=== PATIENT | male | born 1955 | race Caucasian/White ===

== ENCOUNTER 2020-05-11 08:05 | Outpatient (REF) | payer MEDICARE, SELFPAY ==
[2020-05-11 11:08] LABS: MANUAL DIFF FLAG NO
[2020-05-11 11:12] LABS: Basophils Absolute Auto 0.1 X10*3/uL (0.0-0.2); Eosinophils Absolute Auto 0.1 X10*3/uL (0.0-0.4); Eosinophils Percent Auto 1.5 % (0-4); Hematocrit 42.9 % (42-52); Hemoglobin 14.6 g/dl (14.0-18.0); Imm Gran Abs Auto 0.05 X10*3/uL (0.00-0.03); Imm Gran Pct Auto 0.7 % (0.0-0.4); Lymphocytes Absolute Auto 2.4 X10*3/uL (1.2-4.9); Lymphocytes Percent Auto 34.1 % (20-40); Mean Corpuscular Hemoglobin 28.7 pg (27.0-33.0); Mean Corpuscular Volume 84.4 fL (80-98); Monocytes Absolute Auto 0.6 X10*3/uL (0.1-1.2); Monocytes Percent Auto 8.8 % (2-11); Neutrophils Absolute Auto 3.9 X10*3/uL (2.0-8.3); Neutrophils Percent Auto 53.9 % (45-73); Platelet Count 306 X10*3/uL (160-400); Red Blood Count 5.08 X10*6/uL (4.60-5.80); Red Cell Distribution Width 13.1 % (11.0-16.0); White Blood Count 7.2 X10*3/uL (4.8-10.8)
[2020-05-11 12:00] LABS: Alanine Aminotransferase 33 U/L (0-40); Albumin Level 4.1 g/dL (3.5-5.0); Alkaline Phosphatase 67 U/L (39-117); Anion Gap 13 (12-20); Aspartate Amino Transferase 17 U/L (5-37); Bilirubin Total 0.7 mg/dL (0.0-1.0); Blood Urea Nitrogen 15 mg/dL (9-16); Calcium 8.5 mg/dL (8.4-10.2); Carbon Dioxide 27 mmol/L (22-29); Chloride 100 mmol/L (96-108); Cholesterol 170 mg/dL; Estimated Glomerular Filt Rate 56; Glucose Fasting 280 mg/dL (60-99); HDL Cholesterol 45 mg/dL; LDL Cholesterol Calculated 109 mg/dl; Potassium 4.6 mmol/l (3.3-5.1); Sodium 135 mmol/L (135-145); Total Protein 6.8 g/dL (6.5-8.0); Triglycerides 83 mg/dL
[2020-05-11 12:04] LABS: Prostate Specific Antigen 0.18 ng/mL (<0.05-4.0)
[2020-05-12 08:22] LABS: ~HepC Num1 0.08 S/CO (0.00-0.79); ~Hepatitis C Antibody Nonreactive (Nonreactive)
== END 2020-05-11 08:06 | disposition home or self-care (01) ==
LOC: HO.MANLDS 08:05
PROVIDERS: PCP Internal Medicine; Visit Provider Internal Medicine
DX: Z00.00 Encounter for general adult medical examination without abnormal findings (principal); Z12.5 Encounter for screening for malignant neoplasm of prostate
CPT/HCPCS: 36415; 80053; 80061; 84153; 85025; 86803

== ENCOUNTER 2020-08-16 08:15 | Outpatient (REF) | payer MEDICARE, SELFPAY ==
[2020-08-16 11:38] LABS: Estimated Average Glucose 272 mg/dL; Hemoglobin A1c % 11.1 %
[2020-08-16 12:07] LABS: Creatinine Urine 161.41 mg/dL; Microalbum/Creatinine Ratio Ur 25.4 ug/mg cr
== END 2020-08-16 08:16 | disposition home or self-care (01) ==
LOC: HO.MANLDS 08:15
PROVIDERS: Visit Provider Internal Medicine
DX: E11.9 Type 2 diabetes mellitus without complications (principal)
CPT/HCPCS: 36415; 82043; 83036

== ENCOUNTER 2020-11-23 07:49 | Outpatient (REF) | payer MEDICARE, SELFPAY ==
[2020-11-23 11:41] LABS: Estimated Average Glucose 203 mg/dL; Hemoglobin A1c % 8.7 %
== END 2020-11-23 07:50 | disposition home or self-care (01) ==
LOC: HO.MANLDS 07:49
PROVIDERS: PCP Internal Medicine; Visit Provider Internal Medicine
DX: E11.9 Type 2 diabetes mellitus without complications (principal)
CPT/HCPCS: 36415; 83036

== ENCOUNTER 2021-04-04 07:54 | Outpatient (REF) | payer MEDICARE, SELFPAY ==
[2021-04-04 11:11] LABS: Estimated Average Glucose 151 mg/dL; Hemoglobin A1c % 6.9 %
== END 2021-04-04 07:55 | disposition home or self-care (01) ==
LOC: HO.MANLDS 07:54
PROVIDERS: PCP Internal Medicine; Visit Provider Internal Medicine
DX: E11.9 Type 2 diabetes mellitus without complications (principal)
CPT/HCPCS: 36415; 83036

== ENCOUNTER 2021-08-23 08:19 | Outpatient (REF) | payer MEDICARE, SELFPAY ==
[2021-08-23 13:41] LABS: Alanine Aminotransferase 31 U/L (0-40); Albumin Level 4.4 g/dL (3.5-5.0); Alkaline Phosphatase 65 U/L (39-117); Anion Gap 14 (12-20); Aspartate Amino Transferase 22 U/L (5-37); Bilirubin Total 0.8 mg/dL (0.0-1.0); Blood Urea Nitrogen 15 mg/dL (9-16); Calcium 9.4 mg/dL (8.4-10.2); Carbon Dioxide 26 mmol/L (22-29); Chloride 103 mmol/L (96-108); Cholesterol 179 mg/dL; Estimated Glomerular Filt Rate 60; Glucose Fasting 130 mg/dL (60-99); HDL Cholesterol 48 mg/dL; LDL Cholesterol Calculated 114 mg/dl; Potassium 4.5 mmol/L (3.3-5.1); Sodium 138 mmol/L (135-145); Total Protein 7.3 g/dL (6.5-8.0); Triglycerides 88 mg/dL
[2021-08-23 14:03] LABS: Estimated Average Glucose 154 mg/dL
== END 2021-08-23 08:20 | disposition home or self-care (01) ==
LOC: HO.MANLDS 08:19
PROVIDERS: PCP Internal Medicine; Visit Provider Internal Medicine
DX: E11.9 Type 2 diabetes mellitus without complications (principal)
CPT/HCPCS: 36415; 80053; 80061; 83036

== ENCOUNTER 2022-02-07 07:32 | Outpatient (REF) | payer MEDICARE, SELFPAY ==
[2022-02-07 12:15] LABS: Estimated Average Glucose 183 mg/dL
== END 2022-02-07 07:33 | disposition home or self-care (01) ==
LOC: HO.MANLDS 07:32
PROVIDERS: Visit Provider Internal Medicine
DX: E11.9 Type 2 diabetes mellitus without complications (principal)
CPT/HCPCS: 36415; 83036

== ENCOUNTER 2022-04-17 08:45 | Outpatient (REF) | payer MEDICARE, SELFPAY ==
[2022-04-17 12:04] LABS: Estimated Average Glucose 160 mg/dL; Hemoglobin A1c % 7.2 %
[2022-04-17 14:03] LABS: Cholesterol 192 mg/dL; HDL Cholesterol 46 mg/dL; LDL Cholesterol Calculated 116 mg/dl; Triglycerides 153 mg/dL
== END 2022-04-17 08:46 | disposition home or self-care (01) ==
LOC: HO.MANLDS 08:45
PROVIDERS: Visit Provider Internal Medicine
DX: E11.9 Type 2 diabetes mellitus without complications (principal)
CPT/HCPCS: 36415; 80061; 83036

== ENCOUNTER 2022-08-28 07:44 | Outpatient (REF) | payer MEDICARE, SELFPAY ==
[2022-08-28 11:52] LABS: Estimated Average Glucose 189 mg/dL; Hemoglobin A1c % 8.2 %
== END 2022-08-28 07:45 | disposition home or self-care (01) ==
LOC: HO.MANLDS 07:44
PROVIDERS: Visit Provider Internal Medicine
DX: E11.9 Type 2 diabetes mellitus without complications (principal)
CPT/HCPCS: 36415; 83036

== ENCOUNTER 2023-02-20 08:34 | Outpatient (REF) | payer MEDICARE, SELFPAY ==
[2023-02-20 13:55] LABS: Estimated Average Glucose 194 mg/dL; Hemoglobin A1c % 8.4 % (<6.0)
== END 2023-02-20 08:35 | disposition home or self-care (01) ==
LOC: HO.MANLDS 08:34
PROVIDERS: Visit Provider Internal Medicine
DX: E11.9 Type 2 diabetes mellitus without complications (principal)
CPT/HCPCS: 36415; 83036

== ENCOUNTER 2023-04-20 07:29 | Outpatient (REF) | payer MEDICARE, SELFPAY ==
[2023-04-20 14:39] LABS: Estimated Average Glucose 200 mg/dL; Hemoglobin A1c % 8.6 % (<6.0)
== END 2023-04-20 07:30 | disposition home or self-care (01) ==
LOC: HO.MANLDS 07:29
PROVIDERS: Visit Provider Internal Medicine
DX: E11.9 Type 2 diabetes mellitus without complications (principal)
CPT/HCPCS: 36415; 83036

== ENCOUNTER 2023-12-24 09:36 | Outpatient (REF) | payer MEDICARE, SELFPAY ==
[2023-12-24 13:41] LABS: Estimated Average Glucose 146 mg/dL; Hemoglobin A1c % 6.7 % (<6.0)
== END 2023-12-24 09:37 | disposition home or self-care (01) ==
LOC: HO.MANLDS 09:36
PROVIDERS: Visit Provider Internal Medicine
DX: E11.9 Type 2 diabetes mellitus without complications (principal)
CPT/HCPCS: 36415; 83036

== ENCOUNTER 2024-02-29 08:07 | Outpatient (REF) | payer MEDICARE, SELFPAY ==
[2024-02-29 13:56] LABS: Estimated Average Glucose 140 mg/dL; Hemoglobin A1C 179.0024 umol/L; Hemoglobin A1c % 6.5 % (<6.0); Total Hemoglobin (HGBA1C) 3726.3719 umol/L
== END 2024-02-29 08:08 | disposition home or self-care (01) ==
LOC: HO.MANLDS 08:07
PROVIDERS: Visit Provider Internal Medicine
DX: E11.9 Type 2 diabetes mellitus without complications (principal)
CPT/HCPCS: 36415; 83036

== ENCOUNTER 2024-02-29 09:27 | Outpatient (REF) | payer MEDICARE, SELFPAY ==
[2024-02-29 14:16] LABS: Creatinine Urine 55.28 mg/dL
== END 2024-02-29 09:28 | disposition home or self-care (01) ==
LOC: HO.MANLDS 09:27
PROVIDERS: Visit Provider Internal Medicine
DX: E11.9 Type 2 diabetes mellitus without complications (principal)
CPT/HCPCS: 82043; 82570

== ENCOUNTER 2024-08-15 08:34 | Outpatient (REF) | payer MEDICARE, SELFPAY ==
[2024-08-15 13:07] LABS: MANUAL DIFF FLAG NO
[2024-08-15 13:38] LABS: Basophils Absolute Auto 0.1 X10*3/uL (0.0-0.2); Basophils Percent Auto 0.9 % (0-2); Eosinophils Absolute Auto 0.1 X10*3/uL (0.0-0.4); Eosinophils Percent Auto 1.5 % (0-4); Hematocrit 41.6 % (42.0-52.0); Hemoglobin 14.1 g/dl (14.0-18.0); Imm Gran Abs Auto 0.03 X10*3/uL (0.00-0.03); Imm Gran Pct Auto 0.4 % (0.0-0.4); Lymphocytes Absolute Auto 1.7 X10*3/uL (1.2-4.9); Lymphocytes Percent Auto 25.1 % (20-40); Mean Corpuscular HGB Conc 33.9 g/dl (31.0-36.0); Mean Corpuscular Hemoglobin 28.5 pg (27.0-33.0); Mean Platelet Volume 9.7 fL (9.4-12.4); Monocytes Absolute Auto 0.8 X10*3/uL (0.1-1.2); Neutrophils Absolute Auto 4.2 x10*3/uL (2.0-8.3); Neutrophils Percent Auto 61.1 % (45-73); Platelet Count 301 X10*3/uL (160-400); Red Blood Count 4.95 X10*6/uL (4.60-5.80); White Blood Count 6.8 X10*3/uL (4.8-10.8)
[2024-08-15 13:46] LABS: Estimated Average Glucose 171 mg/dL; Hemoglobin A1c % 7.6 % (<6.0); Total Hemoglobin (HGBA1C) 3754.7316 umol/L
== END 2024-08-15 08:35 | disposition home or self-care (01) ==
LOC: HO.MANLDS 08:34
PROVIDERS: Visit Provider Internal Medicine
DX: E11.9 Type 2 diabetes mellitus without complications (principal); Z00.00 Encounter for general adult medical examination without abnormal findings
CPT/HCPCS: 36415; 83036; 85025

== ENCOUNTER 2025-03-17 10:33 | Outpatient (REF) | payer MEDICARE, SELFPAY ==
[2025-03-17 13:06] LABS: MANUAL DIFF FLAG NO
[2025-03-17 13:11] LABS: Hematocrit 41.5 % (42.0-52.0); Hemoglobin 13.8 g/dl (14.0-18.0); Imm Gran Abs Auto 0.03 X10*3/uL (0.00-0.03); Imm Gran Pct Auto 0.5 % (0.0-0.4); Lymphocytes Absolute Auto 1.4 X10*3/uL (1.2-4.9); Mean Corpuscular HGB Conc 33.3 g/dl (31.0-36.0); Mean Corpuscular Hemoglobin 28.0 pg (27.0-33.0); Mean Corpuscular Volume 84.2 fL (80.0-98.0); NRBC Abs Auto 0.000 X10*3/uL (0.0-0.012); NRBC Pct Auto 0.0 /100WBC (0.0-0.2); Platelet Count 317 X10*3/uL (160-400); Red Blood Count 4.93 X10*6/uL (4.60-5.80); White Blood Count 6.0 X10*3/uL (4.8-10.8)
--- OUTSIDE RECORDS SUMMARY | 2025-03-17 13:15 | XMS_ITS | Continuity of Care Document ---
Author Organization [facility], [facility] Address [address] [facility] et [address] [place] [address] Assessment Encounter Date Assessment Date Assessment LastModified by Organization Details LastModified Time 03/17/2025 03/17/2025 Patient presente d to office today for their Medicare Annual Wellness Visit. Education was provided on healthy nutrition, including a diet rich in fruits and vegetables, minimizing simple carbohydrates, salt, and saturated fats. Encouraged regular cardiovascular exercise such as walking at least 30 minutes daily, 5 times per week. Emphasized preventive health measures and educated pt on fall prevention and community-based lifestyle interventions to help reduce health risks and promote healthy living. [email or web address] Not available 03/10/2025 12:21:27 Plan of Treatment Reminders Order Date Submit Date Provider Last Modified By Organization Details Last Modified Time Details Appointments MEDICARE ANNUAL WELLNESS 2024 10:00A M DR CARDOSO Not available Not available Not available FOLLOW UP 15 2025 10:00A M DR CARDOSO Not available Not available Not available Lab hemoglobi n A1c, QN, blood 2024 025 [facility], [address] [place] [address], [id number], 03/17/2025 10:22:05 CBC w/ auto diff 2024 025 [facility], [address] [place] [address], [place], [id number], 03/17/2025 10:22:05 CMP, serum or plasma 2024 025 [facility], [address] [place] [address], [id number], 03/17/2025 10:22:05 Referral None recorded. Procedures None recorded. Surgeries None recorded. Imaging None recorded. Medication Orders None recorded. Patient TargetsNo targets recorded. Patient Instructions Encounter Date Encounter Id Patient Instructions Last Modified By Organization Details Last Modified Time 03/17/2025 [id number] advance care planning: care instructions Not available 03/17/2025 10:20:47 Discussed and explained advance directives such as standard forms to the patient. Face to face discussion lasted for a duration of _30__ minutes. Not available 03/17/2025 10:19:09 Reason for Referral None Reported. Results Created Date Observation Date Name Description Value Unit Range Abnormal Flag Note LastModifiedBy Organization Detail LastModifiedTime Result Notes None recorded. Problems Name Problem SNOMED Code Status Onset Date Resolution Date Notes Provider Name and Address Organization Details Recorded Time Type 2 diabetes mellitus 90115766 Active 2019 Not Available [facility] 3 16:00:58 Dysplastic nevus of skin 201003980 Active 2021 Not Available [facility] 3 16:00:58 Actinic keratosis 597425319 Active 2022 Aung Cardoso DO [address] [place] [address], [phone], [facility] 3 12:28:36 Xerosis due to atopic dermatitis 308375341 Active 2022 Aung Cardoso DO [address] [place] [address], [address], [facility] 3 12:30:02 Retinal hemorrhage 97798582 Active 2023 Aung Cardoso DO [address] [place] [address], [phone], [facility] 4 16:21:31 Colorectal cancer detected by DNA-based stool screening 243627934 Active 2023 TAD ESCAMILLA [address] [place] [address], [address], [facility] 4 10:48:45 Problem Notes None recorded. Procedures Surgical History Date Name Laterality Status Provider Name and Address Organization Details Recorded Time 03/12/20 25 Colonoscopy completed Aung Cardoso, DO [address] [facility], [place], [address], [facility] 03/12/2025 12:19:05 08/22/19 25 Colonoscopy completed Graham Haleyjessica [facility] 08/22/2024 07:29:10 Imaging Results None recorded. Procedure Notes None recorded. Medical Equipment None Reported. Allergies No known drug allergies Medications Name Sig Start Date Stop Date Status Note LastModified by Organization Details LastModified Time metformin 500 mg tablet TAKE 1 TABLET BY MOUTH EVERY DAY 03/05 completed Not Available Not Available Not Available fluorouraci l 5 % topical cream APPLY TWICE DAILY FOR TWO WEEKS TO FRONTAL HAIR LINE TO SCALP. WASH HANDS AFTER APPLYING. active Not Available Not Available No t Available glimepiride 2 mg tablet TAKE 1 TABLET BY MOUTH EVERY DAY AT DINNER FOR 30 DAYS active Not Available Not Available No t Available metformin 1,000 mg tablet TAKE 1 TABLET BY MOUTH EVERY DAY 03/05 completed Not Available Not Available Not Available glimepiride 4 mg tablet TAKE 1 TABLET BY MOUTH EVERY DAY IN THE MORNING active Not Available Not Available No t Available GaviLyte-G 236 gram-22.74 gram-6.74 gram-5.86 gram oral solution 4000ML ORALLY PATIENT HAS INSTRUCTI ONS 2 DAYS 03/17 completed Not Available Not Available Not Available Prevnar 13 (PF) 0.5 mL intramuscul ar syringe ADM 0.5ML IM UTD 05/10 completed Not Available Not Available Not Available Jardiance 10 mg tablet TAKE 1 TABLET BY MOUTH EVERY DAY FOR 30 DAYS 10/09 completed Not Available Not Available Not Available Jardiance 25 mg tablet TAKE 1 TABLET BY MOUTH EVERY DAY 05/29 completed Not Available Not Available Not Available Shingrix (PF) 50 mcg/0.5 mL intramuscul ar suspension, kit ADM 0.5ML IM UTD 05/10 completed Not Available Not Available Not Available Fluzone High-Dose Quad (PF) 240 mcg/0.7 mL IM syringe ADMINISTE R 0.7ML IN THE MUSCLE DIRECTED 05/10 completed Not Available Not Available Not Available Vitals Date Recorded Body height Body mass index (BMI) Body weight Heart rate Oxygen saturation Oxygen saturation in Arterial blood by Pulse oximetry Systolic And Diastolic Provider Name and Address Organization Details Last Updated DateTime 5 165.1 cm 31.8 kg/m2 72202.1 4 g 79 /min 98 % 98 % 124/72 mm[Hg] Aung Cardoso DO [address] [place], [address] 5 10:04:59 Social History Question Answer Notes LastModified by Organizat ion Details LastModified Time Tobacco Smoking Status Former Smoker quit 2012 Connie tarango [facility] 05/10/2020 14:51:47 What Was The Date Of Your Most Recent Tobacco Screening? 03/17/2025 Information not available 03/17/2025 Sex: Unknown Functional Status Question Answer Note LastModified by Organization D etails LastModified Time Do you or have you ever used any other forms of tobacco or nicotine? No [email or web address] Information not available 03/05/2023 Mental Status None recorded. Family History Nothing Reported. Medical History No medical history recorded. Immunizations Vaccine Type Date Status Note Provider Nam e and Address Organization Details Recorded Time COVID-19, mRNA, LNP-S, PF, 30 mcg/0.3 mL dose 08/22/19 21 completed Aung Cardoso DO [address] [place] [address], [phone], [facility] 12/01/2020 10:36:00 COVID-19, mRNA, LNP-S, PF, 30 mcg/0.3 mL dose 09/12/19 21 completed Aung Cardoso DO [address] [place] [address], [address], [facility] 12/01/2020 10:36:06 Influenza, split virus, quadrivalent, preservative 01/19/20 21 completed Connie tarango [facility] 01/19/2021 15:29:19 pneumococcal polysaccharide PPV23 01/19/20 21 [facility] 01/19/2021 15:29:33 COVID-19, mRNA, LNP-S, PF, 30 mcg/0.3 mL dose 04/13/20 21 completed Aung Cardoso, [address] [place] [address], [address], [facility] 04/14/2021 16:21:19 COVID-19, mRNA, LNP-S, bivalent, PF, 10 mcg/0.2 mL 03/14/20 22 completed Elizabet tarango [facility] 04/18/2022 15:01:37 influenza, unspecified formulation 03/14/20 22 completed Elizabet tarango [facility] 04/18/2022 15:01:49 SARS-COV-2 (COVID-19) vaccine, UNSPECIFIED 01/18/20 24 completed Aung Cardoso DO [address] [place] [address], [address], [facility] 01/25/2024 07:03:38 influenza, unspecified formulation 03/17/20 25 completed Aung Cardoso, [address] [place] [address], [address], [facility] 03/17/2025 10:17:27 Influenza, split virus, quadrivalent, preservative 01/11/20 19 [facility] 14:46:12 Influenza, split virus, quadrivalent, preservative 01/06/20 20 leighton tarango [facility] 05/10/2020 14:46:12 Pneumococcal conjugate PCV 13 03/07/20 20 leighton tarango [facility] 05/10/2020 14:46:12 zoster recombinant 03/07/20 leighton tarango [facility] 05/10/2020 14:46:12 Influenza, split virus, quadrivalent, preservative 01/03/20 18 leighton tarango [facility] 05/10/2020 14:46:12 Past Encounters Encounter ID Performer Location Encounter Start Date Encounter Closed Date Diagnosis/Indication Diagnosis SNOMED-CT Code Diagnosis ICD10 Code Diagnosis IMO Codes Diagnosis Note [id number] DO [facility] [address],[place] [address] 03/17/2025 09:51:51 03/17/2025 10:34:09 Screening for cardiovascular system disease 969637811 Z13.6 Screening for malignant neoplasm of colon 551078593 Z12.11 colonsocop y last week Depression screening 171 107168 Z13.31 negative Type 2 luis betes mellitus 94058243 E11.9 a1c is now down to 6.5 wasd up to 9.1 on jardiance 25glimepir ember 4mg working well Preventive procedure 169 759197 Z00.00 [id number] actually doing well and is without signif complaints Health Concerns Section Related Observation LastModified by Organization Detai ls LastModified Time None Recorded Concern Status LastModified by Organization Details LastModified Time None Recorded Payers Encounter Date Sequence Insurance Name Policy Number Policy Ojeda Covered Member ID Ojeda Member ID Guarantor Name 03/17/2025 1 [facility]: MEDICARE PPO BLUE (MEDICARE REPLACEMENT PPO) [id number] Aung Reyes [id number] Aung Reyes Notes Date Note Type Note Provider Name a nd Address Organization Details Recorded Time 5 text/html Care Management - DiabetesReported by PatientHPIFor self care, patient reportsseeing eye doctor yearly for dilated eye exam,checking feet regularly,normal range of home blood sugars (in the low 100s), andno side effects from medications. For associated symptoms, patient reportssymptoms are usually well controlled,no fatigue,no dizziness,no excessive sweating,no headaches,no confusion,no increased thirst,no increased appetite,no increased urination,no blurred vision,no numbness of feet, andno calluses on feet. Medicare Annual Wellness VisitReported by PatientSocial/Behavio ral HistoryFor diet and nutrition, patient reportshealthy diet. For fracture risk, patient reportsno history of fractures,no recent explained fracture,no sudden unexplained fractures, andno previous musculoskeletal injuries. For physical activity, patient reportsexercises on a regular basis,recent increase in physical activity, andgood physical condition.Mental Status:For depression risk, patient reportsnever feels sad, empty, or tearful,no loss of interest in activities,no significant changes in weight,no sleep disturbances or insomnia,no agitation,no loss of energy,no feelings of worthlessness or guilt,no thoughts of suicide,no history of depression, andno history of mood disorders. For orientation, patient reportsno disorientation to time,no disorientation to date, andno disorientation to place. For concentration and memory, patient reportsno decreased concentrating ability,no memory lapses or loss, anddoes not forget words. For speech/motor difficulties, patient reportsno speech difficulties,no difficulty expressing formulated concepts,no difficulty with fine manipulative tasks,no difficulty writing/copying,no slowed reaction time, anddoes not knock things over when trying to pick them up.Functional AbilityFor hearing, patient reportsno loss of hearing. For vision, patient reportsno vision problems. For activities of daily living, patient reportsable to bathe with limited or no assistance,able to contol urination and bowels,able to dress with limited or no assistance,able to feed self with limited or no assistance,able to get out of chair or bed with limited or no assistance,able to groom with limited or no assistance, andable to toilet with limited or no assistance. For instrumental activities of daily living, patient reportsable to do house work with limited or no assistance,able to grocery shop with limited or no assistance,able to manage medications with limited or no assistance,able to manage money with limited or no assistance,able to prepare meals with limited or no assistance, andable to use the phone with limited or no assistance. For falls risk assessment, patient reportsno frequent falls while walking,no fall in the past year,no fall since last visit, andno dizziness/vertigo. For home safety, patient reportsno unsafe billy hazzards,no unsafe stairs,no unsafe gas appliances,working smoke/co detectors,wears protective head gear for biking/high velocity,use of seatbelts,practicing 'safer sex',no vision or hearing loss while driving,no fire arms,has hand bars in the bathroom/shower, andgood lighting in the home.ROS as noted in the HPI here for med dwellness doing well except for the right knee having pain froma retained screwhe will have this removed 3 dec walking 1 mile every day Aung Cardoso, DO [address] [place], [address], [place] [facility] 03/17/2025 10:27:32
--- OUTSIDE RECORDS SUMMARY | 2025-03-17 13:15 | XMS_ITS | Encounter Summary ---
Author Organization [facility] Address [address] [place] [address] Care Team Providers Care Starter Mechanic Name Role Phone Keena Byers MD Primary Care Provider [phone] Encounter Details Date Type Department Care Team (Late st Contact Info) Description 01/01/2009 Orders Only [facility] [address] [place] [phone] Keena Byers MD [address] [place] [id number] Social History Tobacco Use Types Packs/Day Years Used Date Smoking Tobacco: Every Day Cigarettes 2 15 Comments:smoking since 14 y/ o at 1.5 ppd Alcohol Use Standard Drinks/Week Comments No 0 (1 standard drink = 0.6 oz pure alcohol) sober 1999; 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 Procedure Name Priority Date/Time Associated Diagnosis Comments BASIC METABOLIC PANEL W/GLOMERULAR FILTRATION RATE (EGFR) Routine 01/01/2009 Chest Pain LIPID PANEL + CARDIAC RISK WITH REFLEX TO LDL DIRECT Routine 01/01/2009 Chest Pain PSA (PROSTATE SPECIFIC ANTIGEN) TOTAL, ANNUAL SCREEN Routine 01/01/2009 Special Screening for Malignant Neoplasm of Prostate CBC W/O DIFFERENTIAL Routine 01/01/2009 Chest Pain THYROID CASCADE Routine 01/01/2009 Chest Pain VITAMIN D, 25-HYDROXY, LC/MS/MS Routine 01/01/2009 Chest Pain documented in this encounter Results * Due to [place] state law, this organization might not be sharing negative HIV tests. * VITAMIN D, 25-HYDROXY, LC/MS/MS (01/01/2009) Vitamin D, 25-OH, Total 39 20 - 100 NG/ML [facility] VITAMIN D, 25-OH, D3 (CHOLECALCIFEROL ) 39 NG/ML [facility] VITAMIN D, 25-OH, D2 (CALCIFEROL) <4 NG/ML [facility] Comment: 25-OHD3 INDICATES BOTH ENDOGENOUS PRODUCTION AND SUPPLEMENTATION. 25-OHD2 IS AN INDICATOR OF EXOGENOUS SOURCES SUCH DIET OR SUPPLEMENTATION. THERAPY IS BASED ON MEASUREMENT OF TOTAL 25-OHD, WITH LEVELS <20 NG/ML INDICATIVE OF VITAMIN D DEFICIENCY WHILE LEVELS BETWEEN 20 NG/ML AND 30 NG/ML SUGGEST INSUFFICIENCY. OPTIMAL LEVELS ARE >30 NG/ML. 01/01/2009 01/01/2009 4:4 9 PM EDT us Keena Byers MD LABORATORY Final Result [facility] [address] [place] [address] * PSA (PROSTATE SPECIFIC ANTIGEN) TOTAL, ANNUAL SCREEN (01/01/2009) PSA 0.1 0 - 4.0 NG/ML [facility] Comment: THIS TEST WAS PERFORMED USING THE SIEMENS (EximForce) CHEMILUMINESCENT METHOD. VALUES OBTAINED FROM DIFFERENT ASSAY METHODS CANNOT BE USED INTERCHANGEABLY. PSA LEVELS, REGARDLESS OF VALUE, SHOULD NOT BE INTERPRETED ABSOLUTE EVIDENCE OF THE PRESENCE OR ABSENCE OF DISEASE. 01/01/2009 01/01/2009 4:4 9 PM EDT Result [facility] Keena Byers MD LABORATORY Final Result Performing Organization Address [facility] Co de Phone Number [facility] [address] [place] [address] * THYROID CASCADE (01/01/2009) Pathologist [facility] TSH, THYROTROPIN 0.62 0.40 - 4.50 UIU/ML [facility] 01/01/2009 01/01/2009 4:4 9 PM EDT Keena Byers MD LABORATORY Final Result Performing Organization Address [facility] de Phone Number [facility] [address] [place] [phone] * CBC W/O DIFFERENTIAL (01/01/2009) Pathologist [facility] WHITE BLOOD COUNT 8.9 3.8 - 10.8 THOUS/UL [facility] RBC 4.81 4.20 - 5.80 MIL/UL [facility] Hemoglobin 14.6 13.2 - 17.1 G/DL [facility] HCT (HEMATOCRIT) 42.7 38.5 - 50.0 % [facility] MCV 88.8 80.0 - 100.0 FL [facility] MCH 30.5 27.0 - 33.0 PG [facility] MCHC 34.3 32.0 - 36.0 G/DL [facility] PLATELETS 307 140 - 400 THOUS/UL [facility] RDW 13.3 11.0 - 15.0 % [facility] MPV 8.1 7.5 - 11.5 FL [facility] 01/01/2009 01/01/2009 4:4 9 PM EDT Result [facility] Keena Byers MD LAB SAME DAY RESULT Final Re sult Performing Organization Address [facility] Co de Phone Number [facility] [address] [place] [address] * (ABNORMAL) BASIC METABOLIC PANEL W/GLOMERULAR FILTRATION RATE (EGFR) (01/01/2009) CALCIUM 9.0 8.6 - 10.2 MG/DL [facility] BUN 9 7 - 25 MG/DL [facility] CREATININE 0.99 0.76 - 1.46 MG/DL [facility] Glucose 104(H) 65 - 99 MG/DL [facility] SODIUM 138 135 - 146 MMOL/L [facility] POTASSIUM 4.9 3.5 - 5.3 MMOL/L [facility] CHLORIDE 103 98 - 110 MMOL/L [facility] CARBON DIOXIDE 24 21 - 33 MMOL/L [facility] GFR > 60 60 AND ABOVE [facility] Comment:UNITS: ML/MIN/1.73 S Q METERS EGFR > 60 60 AND ABOVE [facility] Comment:UNITS: ML/MIN/1.73 S Q METERS 01/01/2009 01/01/2009 4:4 9 PM EDT Narrative [facility] - 01/01/2009 7:51 PM EDT Please note that this estimated GFR does not include an adjustment for the patient's height or weight, and can therefore, be viewed as reliable only for patients with heights between 60 and 72 . More precise quantification using a 24-hour urine sample or height-based algorithm is recommended for patients outside of this range of height and for those individuals with more precise needs for GFR calculation. Keena Byers MD LABORATORY Final Result [facility] [address] [place] [address] * (ABNORMAL) LIPID PANEL + CARDIAC RISK WITH REFLEX TO LDL DIRECT (01/01/2009) CHOLESTEROL, TOTAL 180 125 - 200 MG/DL [facility] TRIGLYCERIDES 120 30 - 149 MG/DL [facility] HDL-CHOLESTEROL 36(L) 40 - 77 MG/DL [facility] LDL-CHOLESTEROL 120 62 - 130 MG/DL [facility] Comment: RISK CATEGORY: LDL-CHOLESTEROL GOAL CHD AND CHD RISK EQUIVALENTS: <100 MULTIPLE (2+) FACTORS: <130 ZERO TO ONE RISK FACTOR: <160 CHD RELATIVE RISK RATIO (TOTAL/HDL) 5.00 0.0 - 5.0 [facility] Comment:(1.0 X AVERAGE) 01/01/2009 01/01/2009 4:4 9 PM EDT us Keena Byers MD LABORATORY Final Result [facility] [address] [place] [address] documented in this encounter Visit Diagnoses Diagnosis Chest pain Chest pain, unspecified Special screening for malignant neoplasm of prostate documented in this encounter Care Teams Starter Mechanic Relationship Specialty Start Date End Date Keena Byers MD PCP - General 12/02/07 04/24/16 documented as of this encounter
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
--- OUTSIDE RECORDS SUMMARY | 2025-03-17 13:15 | XMS_ITS | Encounter Summary ---
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 Procedure Name Priority Date/Time Associated Diagnosis Comments CARDIAC RISK/LIPID PROFILE I Routine 03/31/2008 Chest Pain BASIC METABOLIC PANEL Routine 03/31/2008 Chest Pain documented in this encounter Results * Due to [place] [employer] law, this organization might not be sharing negative HIV tests. * (ABNORMAL) BASIC METABOLIC PANEL (03/31/2008) CALCIUM 8.7 8.6 - 10.2 MG/DL BUN 11 7 - 25 MG/DL CREATININE 0.86 0.50 - 1.30 MG/DL Glucose 106(H) 65 - 99 MG/DL SODIUM 136 135 - 146 MMOL/L POTASSIUM 4.4 3.5 - 5.3 MMOL/L CHLORIDE 102 98 - 110 MMOL/L CARBON DIOXIDE 24 21 - 33 MMOL/L 03/31/2008 03/31/2008 1:1 6 PM EST us Keena Byers MD LAB SAME DAY RESULT Final Re sult * (ABNORMAL) CARDIAC RISK/LIPID PROFILE I (03/31/2008) CHOLESTEROL, TOTAL 172 125 - 200 MG/DL TRIGLYCERIDES 68 30 - 149 MG/DL HDL-CHOLESTEROL 39(L) 40 - 77 MG/DL LDL-CHOLESTEROL 119 62 - 130 MG/DL Comment: RISK CATEGORY: LDL-CHOLESTEROL GOAL CHD AND CHD RISK EQUIVALENTS: <100 MULTIPLE (2+) FACTORS: <130 ZERO TO ONE RISK FACTOR: <160 CHD RELATIVE RISK RATIO (TOTAL/HDL) 4.41 0.0 - 5.0 Comment:(0.8 X AVERAGE) 03/31/2008 03/31/2008 1:1 6 PM EST Keena Byers MD LABORATORY Final Result documented in this encounter Visit Diagnoses Diagnosis Chest pain Chest pain, unspecified documented in this encounter Care Teams Weight Loss Physician Relationship Specialty Start Date End Date Keena Byers MD PCP - General 12/02/07 04/24/16 documented as of this encounter
--- OUTSIDE RECORDS SUMMARY | 2025-03-17 13:15 | XMS_ITS | Encounter Summary ---
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 Procedure Name Priority Date/Time Associated Diagnosis Comments HELIOBACTER PYLORI IGG Routine 01/08/2008 Epigastric Abdominal Pain documented in this encounter Results * Due to [place] [employer] law, this organization might not be sharing negative HIV tests. * H. PYLORI IGG (01/08/2008) H. Pylori IgG NEGATIVE NEGATIVE 01/08/2008 01/08/2008 9:3 9 PM EDT us Keena Byers MD LABORATORY Final Result documented in this encounter Visit Diagnoses Diagnosis Epigastric abdominal pain Abdominal pain, epigastric documented in this encounter Care Teams Pasting Machine Operator Relationship Specialty Start Date End Date Keena Byers MD PCP - General 12/02/07 04/24/16 documented as of this encounter
--- OUTSIDE RECORDS SUMMARY | 2025-03-17 13:16 | XMS_ITS | Encounter Summary ---
Author Organization [facility] Address [address] [place] [address] Care Team Providers Care Hand Salter Name Role Phone Keena Byers MD Primary Care Provider Encounter Details Date Type Department Care Team (Late st Contact Info) Description 12/17/2007 Orders Only [facility] [address] [place] [phone] Keena Byers MD [address] [place] [phone] Social History Tobacco Use Types Packs/Day Years Used Date Smoking Tobacco: Every Day Sex and Gender Information Value Date Recorded Sex Assigned at Not on file Legal Sex Male 5:57 PM EDT Gender Identity Not on file Sexual Orientation Not on file documented as of this encounter Plan of Treatment Not on file documented as of this encounter Procedures * Due to [place] [employer] law, this organization might not be sharing negative HIV tests. Procedure Name Priority Date/Time Associated Diagnosis Comments BASIC METABOLIC PANEL Routine 12/17/2007 Chest Pain PSA (PROSTATE SPECIFIC AG) TOTAL DIAGNOSTIC OR FOLLOW-UP Routine 12/17/2007 Special Screening for Malignant Neoplasm of Prostate documented in this encounter Results * Due to [place] [employer] law, this organization might not be sharing negative HIV tests. * PSA (PROSTATE SPECIFIC AG) TOTAL DIAGNOSTIC OR FOLLOW-UP (12/17/2007) PSA 0.2 0 - 4.0 NG/ML Comment: THIS TEST WAS PERFORMED USING THE [facility] ([facility]) CHEMILUMINESCENT METHOD. VALUES OBTAINED FROM DIFFERENT ASSAY METHODS CANNOT BE USED INTERCHANGEABLY. PSA LEVELS, REGARDLESS OF VALUE, SHOULD NOT BE INTERPRETED ABSOLUTE EVIDENCE OF THE PRESENCE OR ABSENCE OF DISEASE. 12/17/2007 12/17/2007 8:3 1 PM EDT us Keena Byers MD LABORATORY Final Result * (ABNORMAL) BASIC METABOLIC PANEL (12/17/2007) CALCIUM 9.3 8.6 - 10.2 MG/DL BUN 14 7 - 25 MG/DL CREATININE 1.17 0.50 - 1.30 MG/DL Glucose 129(H) 65 - 99 MG/DL SODIUM 139 135 - 146 MMOL/L POTASSIUM 4.4 3.5 - 5.3 MMOL/L CHLORIDE 103 98 - 110 MMOL/L CARBON DIOXIDE 22 21 - 33 MMOL/L 12/17/2007 12/17/2007 8:3 1 PM EDT Keena Byers MD LAB SAME DAY RESULT Final Re sult documented in this encounter Visit Diagnoses Diagnosis Chest pain Chest pain, unspecified Special screening for malignant neoplasm of prostate documented in this encounter Care Teams Hand Salter Relationship Specialty Start Date End Date Keena Byers MD PCP - General 12/02/07 04/24/16 documented as of this encounter
--- OUTSIDE RECORDS SUMMARY | 2025-03-17 13:16 | XMS_ITS | Data Portability ---
Author Organization [facility], Telehealth Patient Home Address [address] [facility] [place] [address] Assessment Encounter Date Assessment Date Assessment LastModified by Organization Details LastModified Time 01/04/2024 01/04/2024 Patient presente d to office today for their Medicare Annual Wellness Visit. doing great with the sugars !!!!!! a 1c is 6.7 will cont current tx Education was provided on healthy nutrition, including a diet rich in fruits and vegetables, minimizing simple carbohydrates, salt, and saturated fats. Encouraged regular cardiovascular exercise such as walking at least 30 minutes daily, 5 times per week. Emphasized preventive health measures and educated pt on fall prevention and community-based lifestyle interventions to help reduce health risks and promote healthy living. Not available 01/04/2024 10:57:01 08/27/2024 08/27/2024 [id number] [place] [id number] (MACHINIST) MDM MODERATE MUST MEET 2 OUT OF 3 ELEMENTS: PROBLEMS, DATA OR RISK ELEMENT 1: PROBLEMS ADDRESSED 1 OR MORE CHRONIC ILLNESS WITH EXACERBATION OR 2 OR MORE STABLE CHRONIC ILLNESSES OR 1 UNDIAGNOSED NEW PROBLEM OR 1 ACUTE ILLNESS W/SYMPTOMS OR 1 ACUTE COMPLICATED INJURY ELEMENT 2: DATA MUST MEET 1 OF 3 CATEGORIES CATEGORY 1: REVIEW OF PRIOR EXTERNAL NOTES, REVIEW OF RESULTS, ORDERING OF EACH TEST, ASSESSMENT REQUIRING INDEPENDENT HISTORIAN OR CATEGORY 2: INDEPENDENT INTERPRETATION OF TESTS BY ANOTHER PHYSICIAN OR SPECIALIST OR CATEGORY 3: DISCUSSION OF MGT OR TEST INTERPRETATION W/EXTERNAL PHYSICIAN OR SPECIALIST ELEMENT 3: RISK RISK OF COMPLICATIONS AND/OR MORBIDITY OR MORTALITY OF PATIENT MANAGEMENT PROVIDER MUST THOROUGHLY DOCUMENT EACH ELEMENT THAT IS COVERED Not available 08/27/2024 10:31:58 2024 2024 [id number] [place] [id number] (MACHINIST) MDM MODERATE MUST MEET 2 OUT OF 3 ELEMENTS: PROBLEMS, DATA OR RISK ELEMENT 1: PROBLEMS ADDRESSED 1 OR MORE CHRONIC ILLNESS WITH EXACERBATION OR 2 OR MORE STABLE CHRONIC ILLNESSES OR 1 UNDIAGNOSED NEW PROBLEM OR 1 ACUTE ILLNESS W/SYMPTOMS OR 1 ACUTE COMPLICATED INJURY ELEMENT 2: DATA MUST MEET 1 OF 3 CATEGORIES CATEGORY 1: REVIEW OF PRIOR EXTERNAL NOTES, REVIEW OF RESULTS, ORDERING OF EACH TEST, ASSESSMENT REQUIRING INDEPENDENT HISTORIAN OR CATEGORY 2: INDEPENDENT INTERPRETATION OF TESTS BY ANOTHER PHYSICIAN OR SPECIALIST OR CATEGORY 3: DISCUSSION OF MGT OR TEST INTERPRETATION W/EXTERNAL PHYSICIAN OR SPECIALIST ELEMENT 3: RISK RISK OF COMPLICATIONS AND/OR MORBIDITY OR MORTALITY OF PATIENT MANAGEMENT PROVIDER MUST THOROUGHLY DOCUMENT EACH ELEMENT THAT IS COVERED Not available 2024 09:53:05 03/17/2025 03/17/2025 Patient presente d to office [...] Lab hemoglobi n A1c, QN, blood 2024 [facility], [address] [place] [address], [id number], 03/17/2025 10:22:05 CBC w/ auto diff 2024 025 [facility], [address] [place] [address], [id number], 03/17/2025 10:22:05 CMP, serum or plasma 2024 025 [facility], [address] [place] [address], [id number], 03/17/2025 10:22:05 CMP, serum or plasma 2024 025 [facility], [address] [place] [address], [id number], 11/25/2024 12:42:55 lipid panel, blood 2024 025 [facility], [address] [place] [address], [address], 11/25/2024 12:59:40 microalbu min, urine 2024 025 [facility], [address] [place] [address], [id number], 11/25/2024 13:40:51 CBC 2024 025 [facility], [address] [place] [address], [id number], 11/25/2024 12:42:54 PSA, serum or plasma 2024 025 [facility], [address] [place] [address], [address], 11/25/2024 13:21:17 HbA1c (hemoglob in A1c), blood 2023 024 [facility], [address] [place] [address], [id number], 03/03/2024 11:09:56 microalbu min, urine 2023 024 [facility], [address] [place] [address], [id number], 03/03/2024 11:10:22 HbA1c (hemoglob in A1c), blood 2023 024 [facility], [address] [place] [address], [id number], 08/18/2024 11:35:02 HbA1c (hemoglob in A1c), blood 2024 025 [facility], [address] [place] [address], [place], [address], 08/27/2024 10:27:28 lipid panel, blood 2023 [facility], [address] [place] [address], [place], [address], 01/04/2024 11:00:20 hemoglobi n, gastroint estinal, stool 2023 024 [facility], [address] [place] [address], [place], [address], 01/04/2024 11:00:20 CBC w/ auto diff 2023 024 [facility], [address] [place] [address], [place], [address], 01/04/2024 11:00:20 CMP, serum or plasma 2023 024 [facility], [address] [place] [address], [place], [address], 01/04/2024 11:00:20 Referral None recorded. Procedures None recorded. Surgeries None recorded. Imaging None recorded. Medication Orders glimepiri de 4 mg tablet 2024 025 [facility] #2024, [address] [place], [address], 2024 09:55:06 glimepiri de 2 mg tablet 2024 025 [facility] #2024, [address] [place], [address], 2024 09:55:06 Patient TargetsNo targets recorded. Patient Instructions Encounter Date Encounter Id Patient Instructions Last Modified By Organization Details Last Modified Time 01/04/2024 [id number] learning about type 2 diabetes Not available 01/04/2024 10:58:49 type 2 diabetes: care instructions Not available 01/04/2024 10:58:49 advance care planning: care instructions Not available 01/04/2024 10:58:49 Discussed and explained advance directives such as standard forms to the . Face to face discussion lasted for a duration of ___ minutes. [email or web address] Not available 12/19/2023 16:03:09 03/17/2025 [id number] advance care planning: care instructions Not available [...] Details Recorded Time Type 2 diabetes mellitus 99093922 Active 2019 Not Available [facility] 3 16:00:58 Dysplastic nevus of skin 130766841 Active 2021 Not Available [facility] 3 16:00:58 Actinic keratosis 282371267 Active 2022 Aung Cardoso DO [address] [place] [address], [phone], [facility] 3 12:28:36 Xerosis due to atopic dermatitis 123237413 Active 2022 Aung Cardoso DO [address] [place] [address], [address], [facility] 3 12:30:02 Retinal hemorrhage 33185794 Active 2023 Aung Cardoso DO [address] [place] [address], [phone], [facility] 4 16:21:31 Colorectal cancer detected by DNA-based stool screening 959832358 Active 2023 TAD ESCAMILLA [address] [place] [address], [address], [facility] 10:48:45 Problem Notes None recorded. Procedures Surgical History Date Name Laterality Status Provider Name and Address Organization Details Recorded Time 03/12/20 25 Colonoscopy completed Aung Cardoso, DO [address] [place], [address], [facility] 03/12/2025 12:19:05 08/22/19 25 Colonoscopy completed Graham Cardoso [facility] 08/22/2024 07:29:10 Imaging Results None [...] Details Last Updated DateTime 5 165.1 cm 30.8 kg/m2 06209.5 9 g 76 /min 98 % 98 % 140/70 mm[Hg] Jerri Mendoza [facility] 5 10:00:19 Date Recorded Body height Body mass index (BMI) Body weight Oxygen saturation Oxygen saturation in Arterial blood by Pulse oximetry Heart rate Systolic And Diastolic Provider Name and Address Organization Details Last Updated DateTime 5 165.1 cm 31.8 kg/m2 32442.7 8 g 95 % 95 % 80 /min 128/70 mm[Hg] Ghislaine Martinez [facility] 5 09:30:01 Date Recorded Body height Body mass index (BMI) Body weight Heart rate Oxygen saturation Oxygen saturation in Arterial blood by Pulse oximetry Systolic And Diastolic Provider Name and Address Organization Details Last Updated DateTime 4 167.64 cm 29.3 kg/m2 46874.3 g 70 /min 96 % 96 % 128/82 mm[Hg] Doron Carvalho [facility] 4 10:28:12 Date Recorded Body height Body mass index (BMI) Body weight Heart rate Oxygen saturation Oxygen saturation in Arterial blood by Pulse oximetry Systolic And Diastolic Provider Name and Address Organization Details Last Updated DateTime 4 165.1 cm 30.8 kg/m2 09058.5 9 g 78 /min 99 % 99 % 132/82 mm[Hg] Doron Carvalho [facility] 4 09:47:54 Date Recorded Body height Body mass index (BMI) Body weight Heart rate Oxygen saturation Oxygen saturation in Arterial blood by Pulse oximetry Systolic And Diastolic Provider Name and Address Organization Details Last Updated DateTime 5 165.1 cm 31.8 kg/m2 67012.1 4 g 79 /min 98 % 98 % 124/72 mm[Hg] Aung Cardoso DO [address] [place] [address], [phone], [facility] 5 10:04:59 Social History Question Answer Notes LastModified by Organizat ion Details LastModified Time Tobacco Smoking Status Former Smoker quit 2012 Connie tarango [facility] 05/10/2020 14:51:47 What Was The Date Of Your Most Recent Tobacco Screening? 03/17/2025 Information not available 03/17/2025 Sex: Unknown Functional Status Question Answer Note LastModified by Organization D etails LastModified Time Do you or have you ever used any other forms of tobacco or nicotine? No [email or web address] Information not available 03/05/2023 Mental Status None recorded. Family History Nothing Reported. Medical History No medical history recorded. Immunizations Vaccine Type Date Status Note Provider Nam e and Address Organization Details Recorded Time COVID-19, mRNA, LNP-S, PF, 30 mcg/0.3 mL dose 08/22/19 21 completed Aung Cardoso DO [address] [place] [address], [phone], [facility] 12/01/2020 10:36:00 COVID-19, mRNA, LNP-S, PF, 30 mcg/0.3 mL dose 09/12/19 21 completed Aung Cardoso DO [address] [place] [address], [address], [facility] 12/01/2020 10:36:06 Influenza, split virus, quadrivalent, preservative 01/19/20 21 completed Connie traango [facility] 01/19/2021 15:29:19 pneumococcal polysaccharide PPV23 01/19/20 21 completed Connie tarango [facility] 01/19/2021 15:29:33 COVID-19, mRNA, LNP-S, PF, 30 mcg/0.3 mL dose 04/13/20 21 completed Aung Cardoso DO [address] [place] [address], [phone], [facility] 04/14/2021 16:21:19 COVID-19, mRNA, LNP-S, bivalent, PF, 10 mcg/0.2 mL 03/14/20 completed Elizabet tarango [facility] 04/18/2022 15:01:37 influenza, unspecified formulation 03/14/20 [facility] 15:01:49 SARS-COV-2 (COVID-19) vaccine, UNSPECIFIED 01/18/20 24 completed Aung Cardoso [address], [phone], [facility] 01/25/2024 07:03:38 influenza, unspecified formulation 03/17/20 completed Aung Cardoso [address], [address], [facility] 03/17/2025 10:17:27 Influenza, split virus, quadrivalent, preservative 01/11/20 19 completed Connie tarango [facility] 05/10/2020 14:46:12 Influenza, split virus, quadrivalent, preservative 01/06/20 [facility] 14:46:12 Pneumococcal conjugate PCV 13 03/07/20 [facility] Connie tarango [facility] 05/10/2020 14:46:12 zoster recombinant 03/07/20 [facility] Connie tarango [facility] 05/10/2020 14:46:12 Influenza, split virus, quadrivalent, preservative 01/03/20 [facility] 14:46:12 Past Encounters Encounter ID Performer Location Encounter Start Date Encounter Closed Date Diagnosis/Indication Diagnosis SNOMED-CT Code Diagnosis ICD10 Code Diagnosis IMO Codes Diagnosis Note [id number] Aung Cardoso DO [address],[place] [address] 05/10/2020 14:24:38 05/10/2020 16:08:29 Adult health examination 462053035 Z00.00 [id number] Aung Cardoso [address],[place] [address] 09/17/2020 11:35:44 09/17/2020 15:20:21 Type 2 diabetes mellitus 55825279 E11.9 a1c is 11.1 and is unacceptab le told pt about this including all the warnings and consequenc es we will start him metformin [id number] Aung Cardoso [facility] [address] [facility], [place] [facility] [place] [address] 12/01/2020 10:31:46 12/01/2020 11:15:11 Type 2 diabetes mellitus 98929429 E11.9 a1c is now 8.7 and was 11.1 and is markedly better doing great and only taking one metfromin consequenc es we will have him come off metformin if he continues to drop the a1c Abdominal aortic aneurysm screening 618645621 Z13.6 [id number] Aung Cardoso [facility] [address] [facility], [place] [facility] [place] [address] 04/27/2021 15:16:27 04/29/2021 09:46:18 Type 2 diabetes mellitus 80782398 E11.9 a1c is now 6.9 was 8.7 and was 11.1 and is markedly better doing great and only taking one metfromin consequenc es we will have him come off metformin if he continues to drop the a1c [id number] Aung Cardoso DO [facility] [address] [facility],[place] [address] 02/14/2022 14:30:47 02/14/2022 16:16:14 Active or passive immunization 246745392 Z23 Adult [facility] th examination 253601739 Z00.00 Type 2 luis betes mellitus 32464040 E11.9 a1c is now 8.0 was 7.0 6.9 was 8.7 and was 11.1 and is taking one metfromin we will increase the dose the dose willgo to 750 [id number] Aung Cardoso [facility] [address] [facility],[place] [address] 04/24/2022 14:30:14 04/24/2022 15:19:41 Type 2 diabetes mellitus 73784275 E11.9 a1c is now back down to 7.0 and doing great considerin g he was 8.0 was 7.0 6.9 was 8.7 and was 11.1 and is taking one metfromin \ 750 [id number] Aung Cardoso [facility] [address] [facility],[place] [address] 09/01/2022 09:09:49 09/01/2022 09:52:36 Dysplastic nevus of skin 421753478 D22.9 Type 2 luis betes mellitus 11268569 E11.9 a1c is now back up to 8.2 this was over the winter and had not been on 1000 mg unfortuant melany he had been 7.0 and doing great considerin g he was 8.0 was 7.0 6.9 was 8.7 and was 11.1 and is taking one metfromin [id number] Aung Cardoso [facility] [address] [facility],[place] [address] 03/05/2023 10:43:47 03/06/2023 11:08:51 Type 2 diabetes mellitus 10321756 E11.9 a1c is now back up to 8.4 and prior was 8.2 this was over the winter and had not been on 1000 mg unfortuant melany he had been 7.0 and doing great considerin g he was 8.0 was 7.0 6.9 was 8.7 and was 11.1 and is taking one metformin 1000mg split in twoSTOP THE METFORMIN AND WE WILL TRY JARDIANCE 10MG DAILY REHK IN 2 MO BEFORE GOING TO [facility] examination 210476355 Z00.00 actually doing well and is without signif complaints [id number] Aung Cardoso [facility] [address] [facility],[place] [address] 05/02/2023 11:47:03 05/02/2023 13:35:43 Type 2 diabetes mellitus 34711905 E11.9 a1c is now back up to 8.6 on jardiance 10mg was at 8.4STOP THE 10mg AND WE WILL TRY JARDIANCE 25 MG DAILY REHK IN 2 MO BEFORE GOING TO [facility] [id number] Aung Cardoso DO [facility] [address] [facility] [address],[place] [address] 10/10/2023 15:33:29 10/10/2023 16:31:34 Type 2 diabetes mellitus 57033313 E11.9 a1c is now back up to 9.1 on jardiance 25we will add glimepirid e 4mg Depression screening 171 509649 Z13.31 negative Retinal hemorrhage 38196 008 H35.62 has retinal specialist [id number] Aung Cardoso DO [facility] [address] [facility] [address],[place] [address] 01/04/2024 10:18:12 01/04/2024 11:02:58 Adult health examination 903873123 Z00.00 actually doing well and is without signif complaints Screening for cardiovascular system disease 266752030 Z13.6 Screening for malignant neoplasm of colon 274963548 Z12.11 Type 2 luis betes mellitus 40568361 E11.9 a1c is now own to 6.7 wasd up to 9.1 on jardiance 25glimepir ember 4mg working well [id number] Aung Cardoso DO [facility] [address] [facility] [address],[place] [address] 03/11/2024 09:39:38 03/11/2024 12:11:38 Active or passive immunization 799491709 Z23 Adult heal th examination 086590910 Z00.00 actually doing well and is without signif complaints Type 2 luis betes mellitus 10059763 E11.9 a1c is now down to 6.5 wasd up to 9.1 on jardiance 25glimepir ember 4mg working well [id number] Aung Cardoso DO [facility] [address] [facility] [address],[place] [address] 08/27/2024 09:48:29 08/27/2024 11:51:39 Type 2 diabetes mellitus 14586894 E11.9 a1c is now down to 6.5 wasd up to 9.1 on jardiance 25glimepir ember 4mg working well Colorectal cancer detected by DNA-based stool screening 380356091 R19.5 polyps were found to all be adenomas removed and has follow up Depression screening 171 967514 Z13.31 negative [id number] Aung Cardoso [facility] [address] [facility], [place] [address] 2024 09:23:19 2024 10:16:16 Depression screening 045568906 Z13.31 negative Type 2 luis betes mellitus 80977323 E11.9 a1c is now down to 6.5 wasd up to 9.1 on jardiance 25glimepir ember 4mg working well [id number] Aung Gerardo Mayra [facility] [address] [facility],[place] [address] 03/17/2025 09:51:51 03/17/2025 10:34:09 Screening for cardiovascular system disease 542859602 Z13.6 Screening for malignant neoplasm of colon 049203589 Z12.11 colonsocop y last week Depression screening 171 831157 Z13.31 negative Type 2 luis betes mellitus 50422267 E11.9 a1c is now down to 6.5 wasd up to 9.1 on jardiance 25glimepir ember 4mg working well Preventive procedure 169 917208 Z00.00 [id number] actually doing well and is without signif complaints Health Concerns Section Related Observation LastModified by Organization Detai ls LastModified Time None Recorded Concern Status LastModified by Organization Details LastModified Time None Recorded Advance Directives Directive None Recorded Payers Insurance Date Sequence Insurance Name Policy Number Policy Ojeda Covered Member ID Ojeda Member ID Guarantor Name 03/17/2025 1 [place] (MEDICARE [place]PLACEMENT PPO) [id number] Aung Reyes [id number] Aung Reyes 03/17/2025 2 [place] [employer] Aung Reyes [id number] Aung Reyes Notes Date Note Type Note Provider Name a nd Address Organization Details Recorded Time 4 text/html Medicare Annual Wellness VisitReported by PatientSocial/Behavio ral [...] as noted in the HPI here for rechk and annual [id number] is now down to 6.7 form 9.1 wow doing great Aung Cardoso DO [address] [place] [address], [address], [facility] 01/04/2024 11:00:53 4 text/html Annual WellnessReported by PatientSocial/Behavio ral HistoryFor diet and nutrition, patient reportshealthy diet. For fracture risk, patient reportsno history of fractures,no recent explained fracture,no sudden unexplained fractures, andno previous musculoskeletal injuries. For physical activity, patient reportsexercises on a regular basis,recent increase in physical activity, andgood physical condition. For additional lifestyle factors, patient reportsno tobacco use,no alcohol intake, andstopped drinking alcohol.Mental Status:For depression risk, patient reportsnever feels sad, empty, or tearful,no loss of interest in activities,no significant changes in weight,no sleep disturbances or insomnia,no agitation,no loss of energy,no feelings of worthlessness or guilt,no thoughts of suicide,no history of depression, andno history of mood disorders.Functional AbilityFor hearing, patient reportsno loss of hearing. For vision, patient reportsno vision problems.ROS as noted in the HPI Aung Cardoso DO [address] [place] [address], [address], [facility] 03/11/2024 10:20:50 5 text/html Care Management - DiabetesReported by [...] vision,no numbness of feet, andno calluses on feet.a1c is up to 7.6 was at 6.5ROS as noted in the HPI here for rechk and is [place]back [place] colons[place]opy and relates did well but required stitches and will be going back in oct to chkployps were all adenomas Aung Cardoso DO [address] [place], [address], [facility] 08/27/2024 10:36:14 5 text/html Care Management - DiabetesReported by [...] vision,no numbness of feet, andno calluses on feet.ROS as noted in the HPI here for rechk and is doing wellno cp no sobappetite and sleep is good Aung Cardoso DO [address] [place], [address], [facility] 2024 09:55:37 5 text/html Care Management - DiabetesReported by PatientIFor self care, patient reportsseeing eye doctor yearly [...] mile every day Aung Cardoso, DO [address] [facility], [place], [address], [facility] 03/17/2025 10:27:32
--- OUTSIDE RECORDS SUMMARY | 2025-03-17 13:16 | XMS_ITS | Encounter Summary ---
Author Organization [facility] Address [address] [place] [address] Care Team Providers Care Assembler Type Bar And Segment Name Role Phone Keena Byers MD Primary Care Provider Aroldo George MD Primary Care Provider [phone] Encounter Details Date Type Department Care Team (Late st Contact Info) Description 11/26/2007 Orders Only [facility] [address] [place] [phone] Eugenio Becerra MD [address] [place] [address] Social History Tobacco Use Types Packs/Day Years Used Date Smoking Tobacco: Every Day Sex and Gender Information Value Date Recorded Sex Assigned at Not on file Legal Sex Male 5:57 PM EDT Gender Identity Not on file Sexual Orientation Not on file documented as of this encounter Plan of Treatment Not on file documented as of this encounter Visit Diagnoses Diagnosis CHEST PAIN Chest pain, unspecified documented in this encounter Care Teams Assembler Type Bar And Segment Relationship Specialty Start Date End Date Keena Byers MD PCP - General 12/02/07 04/24/16 Aroldo George MD [facility] [address] [address] PCP - General 08/12/05 12/01/07 documented as of this encounter
--- OUTSIDE RECORDS SUMMARY | 2025-03-17 13:16 | XMS_ITS | Clinical Summary ---
Author Organization [facility] Address [address] [place] [address] Care Team Providers Care Front Desk Name Role Phone Unavailable Primary Care Provider Unavailabl e Allergies No known active allergies Medications * This document contains information received from the source organization and may not represent a complete record from that organization. ASPIRIN EC 81 MG OR TBECIndications: Chest pain 1 TABLET DAILY 30 0 12/03/2007 Active OMEPRAZOLE 20 MG OR TBECIndications: Epigastric abdominal pain Take 1 tablet by mouth daily 90 3 04/09/2008 Active MULTIVITAMINS OR TABSIndications: Routine general medical examination at a health care facility 1 TABLET DAILY 30 0 01/06/2009 Active Active Problems Problem Noted Date Diagnosed Date Impaired fasting blood sugar 01/06/2009 Overview (01/06/2009): FBS 104 mild Epigastric abdominal pain 01/08/2008 Overview (01/06/2009): Prilosec OTC 20 mg once daily; Hpylori IgG negative; rare Adjustment disorder with anxious mood 01/08/2008 Overview (01/06/2009): Better on citalopram 20 mg qd Anxiety 01/08/2008 Overview (04/09/2008): 12/26 started citalopram 20 mg qd Health maintenance examination 12/03/2007 Overview (01/06/2009): 02/25/2007 Colonoscopy. Bowel preparation good. No polyps seen on examination. Retroflexion performed in rectum. IMPRESSION: Normal colonoscopy. RECOMMENDATIONS: Follow with primary care physician. Repeat colonoscopy for screening in 10 years. 12/27 TRIGLYCERIDES 120 HDL-CHOLESTEROL 36 (L) LDL-CHOLESTEROL 120; TSH wnl VERTEBRAL COMPRESSION FRACTURE *0.50* 12/03/2007 Overview (10/09/2013): CXR showed Compression fracture of L1 vertebra. Past accident. Asymptomatic; check vitamin d . Chest pain 12/03/2007 Overview (09/19/2013): Hospitalized 11/26/07 EXERCISE NUCLEAR MYOCARDIAL PERFUSION STUDY: Average functional capacity for age. Appropriate heart rate and blood pressure response. No symptomatic or electrocardiographic evidence of ischemia at 85% of maximum predicted heart rate. Negative for ischemia. LVEF 43% mild global hypokinesis. No definite area of infarct or ischemia identified. Zestril 2.5 mg qd; aspirin 81 mg qd; prilosec otc qd; 12/18/07 Echo: The LV ejection fraction is estimated to be 50%. Left ventricular systolic function is low normal. There is trace mitral regurgitation. Trace pulmonic valvular regurgitation. Cardiology consult 01/01/08 Dr. Latif recommended no further workup is required but for continuation of risk factor modification. Should these episodes persist, I would then direct therapy to possibly gastroesophageal reflux disease and of course I will be more than happy to revisit with him should there be any consideration of any further cardiovascular issues. 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 asymptomatic Major Depressive Disorder, recurrent 10/06/2005 Overview (04/09/2008): Celexa weaned off 2005; currently denies depression or suicidal ideation. Tobacco abuse 10/06/2005 Overview (01/06/2009): Strongly advised to stop/quit smoking. Patient is warned. Cut down to half ppd Immunizations Immunization Administration Dates Next Due COVID-19, mRNA (Moderna Pre Fall 2022) bivalent, 25 mcg/0.25 ml (6 months - 11 years) or 50 mcg/0.5 ml (12+ years) 03/14/2022 COVID-19, mRNA (Moderna Spik evax) Seasonal, 50 mcg/0.5 mL (12+) 01/18/2024 COVID-19, mRNA (Pfizer Pre F all 2022) Monovalent, 30 mcg/0.3 ml 04/13/2021,09/11/2020,08/21/2020 Influenza,adjuvanted,trivale nt,PF (Fluad) 01/18/2024 Influenza,high-dose, Quadrivalent 2022,03/14/2022,01/18/2021,01/05 Influenza,injectable,quad,Prsrv Fr 01/10/2019, PPV23 (Pneumovax) 01/18/2021 Td (adult), adsorbed 10/19/1993 Tdap(Boostrix) 12/31/2007 12/30/2017 Zoster (Shingrix) 01/06/2020 influenza,seasonal,trivalent ,PF (Fluzone, Fluarix, Flulaval) 01/31/2017,04/10/2015 Family History Medical History Relation Name Comments Heart Disorder Brother 5 cad; mi @47 Heart Disorder Father [place] 60 y/o Cancer (?Type) Mother pancreatic Cancer (?Type) Neg Hx colon,skin,pr ostate,ovarian Diabetes Neg Hx Gastrointestinal Disorder Neg Hx co martha polyps Hypertension Neg Hx Lipid/Cholesterol Abnormality Neg Hx Other Neg Hx fragility fract ures Stroke Neg Hx Thyroid Disorder Neg Hx Relation Name Status Comments Brother 1 Alive Brother 2 Alive Brother 3 Alive Brother 4 Alive Brother 5 Father (Age 77) Mother Social History Tobacco Use Types Packs/Day Years Used Date Smoking Tobacco: Every Day Cigarettes 2 15 Comments:smoking since 14 y/ o at 1.5 ppd; 2008 half ppd Alcohol Use Standard Drinks/Week Comments No 0 (1 standard drink = 0.6 oz pure alcohol) sober 1999; heavy drinker 10 years Sex and Gender Information Value Date Recorded Sex Assigned at Not on file Legal Sex Male 5:57 PM EDT Gender Identity Not on file Sexual Orientation Not on file 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 Not on file Not on file Not on file Last Filed Vital Signs Vital Sign Reading Time Taken Comments Blood Pressure 112/66 01/06/2009 3:30 PM EDT Pulse 64 01/06/2009 3:30 PM EDT Temperature - - Respiratory Rate - - Oxygen Saturation - - Inhaled Oxygen Concentration - - Weight 68 kg (150 lb) 01/06/2009 3:30 PM EDT Height 160 cm (5' 3 ) 01/06/2009 3:30 PM EDT Body Mass Index 26.57 01/06/2009 3:30 PM EDT Plan of Treatment Health Maintenance Due Date Last Done Comments Hepatitis C Screening [address] CT Lung Screening 2004 DTaP/Tdap/Td (2 - Td or Tdap) 12/30/2017 12/31/2007, 10/19/1993 Abdominal Aorta Imaging 12/11/2019 03/13/20 02, 01/15/2001, 10/23/2000 Zoster (Shingrix) (2 of 2) 03/02/2020 01/06/2020 Pneumococcal 50+ years (2 of 2 - PCV) 01/18/2022 01/18/2021 COVID-19 Vaccine ( season) 2025 01/18/2024, 03/14/2022, 04/13/2021, Additional history exists Influenza (#1) 2025 01/18/2024, 01/20, 03/14/2022, Additional history exists RSV (1 - 1-dose 75+ series) 2029 HPV Vaccine (No Doses Required) Completed Hep A Aged Out No longer eligi ble based on patient's age to complete this topic Hep B Aged Out No longer eligi ble based on patient's age to complete this topic Hib Aged Out No longer eligi ble based on patient's age to complete this topic Meningococcal ACWY Aged Out No longer eligible based on patient's age to complete this topic Zoster (Zostavax) Discontinued Procedures * Due to [place] state law, this organization might not be sharing negative HIV tests. Procedure Name Priority Date/Time Associated Diagnosis Comments CT ABDOMEN W/CONTRAST MATERIAL(S) Routine 03/13/2002 9:00 AM EDT Congenital Anomalies of Spleen from Last 3 Months or Most Recently Relevant to Health Maintenance Results * Due to [place] state law, this organization might not be sharing negative HIV tests. * CT ABDOMEN W/CONTRAST MATERIAL(S) (03/13/2002 9:00 AM EDT) RADIOLOGY REPORT CT scan of abdomen 03/13/02: Multiple CT images of the abdomen were obtained from the lower lung zones to below the iliac crest after a power intravenous injection of 120 cc of Isovue without adverse reaction and after obtaining consent from the patient. The current study is compared with CT scan of the abdomen dated 10/23/00. The previously reported multiple very small hypodense lesions in the spleen are not apparent on the current study. A single small calcified granuloma is seen in the posterior-superior aspect of the spleen. The liver, pancreas, adrenals, both kidneys, and major vascular structures are unremarkable. There is no abdominal or retroperitoneal mass or lymphadenopathy. No abnormalities are seen in the lower lung zones. Impression: Normal CT scan of abdomen except for a single small calcified granuloma of the spleen. [facility] (CLIA# [id number]) Anatomical Region Laterality Modality Other 03/13/2002 9:00 AM EDT Narrative 03/13/2002 2:25 PM EDT Reason for Study/History: LYTIC SPLENIC MASSES Test(s) processed by : [facility] Aroldo George MD CONTRAST STUDY- OTHER Final Re sult from Last 3 Months or Most Recently Relevant to Health Maintenance Insurance [employer] * Guarantor: [employer] Account Type Relation to Patient Date of Phone Billing Address [employer] [address] [place] [address] * Guarantor: [employer] Account Type Relation to Patient Date of Phone Billing Address [employer] ATTN: A/P [address] [place] [address]
[2025-03-17 13:20] LABS: Alanine Aminotransferase 30 U/L (0-40); Albumin Level 4.5 g/dL (3.5-5.0); Alkaline Phosphatase 79 U/L (39-117); Anion Gap 11 (12-20); Aspartate Amino Transferase 25 U/L (5-37); Blood Urea Nitrogen 20 mg/dL (9-16); Calcium 9.1 mg/dL (8.4-10.2); Carbon Dioxide 28 mmol/L (22-29); Chloride 102 mmol/L (96-108); Estimated Glomerular Filt Rate 46; Potassium 5.1 mmol/L (3.3-5.1); Sodium 136 mmol/L (135-145); Total Protein 7.5 g/dL (6.5-8.0)
[2025-03-18 07:58] LABS: Hemoglobin A1C 156.6034 umol/L; Total Hemoglobin (HGBA1C) 2397.5733 umol/L
== END 2025-03-17 10:34 | disposition home or self-care (01) ==
LOC: HO.MANLDS 10:33
PROVIDERS: Visit Provider Internal Medicine
DX: Z00.00 Encounter for general adult medical examination without abnormal findings (principal); E11.9 Type 2 diabetes mellitus without complications
CPT/HCPCS: 36415; 80053; 83036; 85025